=== PATIENT | male | born 1990 | race Caucasian/White ===

== ENCOUNTER 2020-06-06 23:02 | Emergency (ER) | payer OTHER ==
[2020-06-06 23:34] VITALS: BP 116/84; PULSE 88; TEMP 97.7; BMI 36.6
== END 2020-06-06 23:35 | disposition home or self-care (01) ==
LOC: JER 23:02
DX: Z11.59 Encounter for screening for other viral diseases (principal)
CPT/HCPCS: 99283-25; C9803; U0003